=== PATIENT | male | born 1970 | race Caucasian/White ===

== ENCOUNTER 2025-04-01 12:25 | Emergency (ER) | payer BC, SELFPAY ==
--- NOTE | ~2025-04-01 | CT_ITS ---
EXAM/PROCEDURE: CT orbit BI wo con HISTORY: left eye injury COMPARISON: None available. TECHNIQUE: Noncontrast orbital CT FINDINGS: Mild periorbital swelling about the left eye present. Punctate hyperdense foci in the midline lower frontal region are present in the dermis area as can be seen on images 23 through 25 series 3. No radiopaque foreign body seen in or about the left orbit. Both globes appear symmetric and intact. Post septal soft tissues appear symmetric and within normal limits. Visualized intracranial and calvarial structures appear intact. Mild ethmoid air cell disease noted. IMPRESSION: No evidence of intraocular or postseptal injury involving the left orbit. Possible punctate foreign bodies in the lower midline frontal scalp region, and mild swelling as discussed above. Correlate with clinical exam. Reviewed, dictated and finalized at location A. ST MANAGEMENT PROFESSOR IMPRESSION: No evidence of intraocular or postseptal injury involving the left orbit. Possi ble punctate foreign bodies in the lower midline frontal scalp region, and mild swelling as discussed above. Correlate with clinical exam.
[2025-04-01 12:51] VITALS: BP 204/88; PULSE 109; RESP 18; TEMP 36.4; O2SAT 97
--- NOTE | 2025-04-01 14:20 | ED_ITS ---
HPI - Eye Problem General Chief complaint: Eye Problems <Selma Hernandes PA-C - Last Filed: 04/01/25 18:04> Stated complaint: nail to left eye <Selma Hernandes PA-C - Last Filed: 04/01/25 18:04> Time Seen by Provider: 04/01/25 14:20 <Selma Hernandes PA-C - Last Filed: 04/01/25 18:04> Focused HPI: This is a 54 year old male that presents to the ER for injury to the left eye. Reports the head of a nail hit him on the left eyelid last night while trying to remove a nail from the floor with a hammer and [place]. He does not wear contacts or glasses. Reports blurry vision as well as double vision in the left eye. GENERAL: Well-appearing, well-nourished, and in no acute distress. HEAD: Normocephalic, atraumatic. EYES: Left eye conjunctival injection CHEST: No respiratory distress. HEART: Regular rate NEURO: ?Alert and oriented x3. Patient screened in triage and initial orders placed.? ?Additional care and disposition to be based upon?diagnostic testing and treatment. <Selma Hernandes PA-C - Last Filed: 04/01/25 18:04> History of Present Illness HPI Narrative: Agree with the above with the following additions/corrections: Patient presents after using a crowbar to remove nails from a tractor trailer. The head of the nail struck him in his left eye although he believes that it might have only struck his eyelid, unclear. He does not wear glasses or contacts at baseline. He does not follow with her see an advertising editor/financial quantitative analyst although does note that at baseline he uses Visine quite regularly due to morning discharge and dry eyes at the end of the day. Has never had this looked into. Notes that it is essentially year round; attributed it to looking at screens, etc; not particularly seasonal. He denies any flashes or floaters. He visited [facility] urgent care [facility] this morning and was advised to present to ED given blurred vision. He reports that while doing the visual acuity test he seemed to have some diplopia in his left eye with his right eye was covered but this only occurred when he was attempting to read the letters and otherwise has not occurred with other objects is not currently occurring with objects in the room. He notes that his eye feels dry but not particularly [place] or with a foreign body sensation. Had used Visine this morning. No previous diagnosis of hypertension although he states that it has been years since he saw his previous primary care physician Dr. Burnham. He says it has been awhile since he had his tetanus updated, unknown when. <Jessica Graham MD - Last Filed: 04/01/25 21:09> Related Data Allergies/adverse reactions: Allergies Allergy/AdvReac Type Severity Reaction Status Date / Time No Known Allergies Allergy Unverified 01/29/11 11:35 <Selma Hernandes PA-C - Last Filed: 04/01/25 18:04> Review of Systems Review of Systems: All systems reviewed & are unremarkable except as noted in HPI and below <Selma Hernandes PA-C - Last Filed: 04/01/25 18:04> PMFSH Social History Social History: Social History Occupation/Education: occupation <Selma Hernandes PA-C - Last Filed: 04/01/25 18:04> Exam Narrative: GENERAL: Well-appearing, well-nourished, and in no acute distress. HEAD: Normocephalic, atraumatic. EYES: non icteric Visual acuity (as per RN) Pupils equal. Normal Ubaldo/fluroscein exam Eyelid (lower and upper) on left everted without evidence of foreign body Extraocular motility and alignment - normal, no entrapment or nystagmus External examination & Slit-lamp examination - 2mm abrasion at the 9 o'clock position of left eye medial /nasal aspect conjunctiva not extending to iris. Pain relief with tetracaine ENT: No epistaxis. Gross auditory acuity intact. NECK: Supple. No meningismus. CHEST: Speaking in full sentences. No respiratory distress. HEART: Tachycardic rate and rhythm. ABDOMEN: Soft, nondistended. EXTREMITIES: Normal range of motion. No lower extremity edema. SKIN: Warm, dry, no rash. NEURO: No focal deficits. Alert and oriented. Answering questions. Following c ommands. Normal speech without aphasia or dysarthria. PSYCH: Normal mood and affect. <Jessica Graham MD - Last Filed: 04/01/25 21:09> Course Vital Signs Vital signs: Vital Signs Temperature 97.5 F L 04/01/25 12:51 Pulse Rate 109 H 04/01/25 12:51 Respiratory Rate 18 04/01/25 12:51 Blood Pressure 204/88 H 04/01/25 12:51 Pulse Oximetry 97 04/01/25 12:51 Oxygen Delivery Room Air 04/01/25 12:51 Temperature 97.8 F 04/01/25 17:30 Pulse Rate 91 04/01/25 17:30 Respiratory Rate 18 04/01/25 17:30 Blood Pressure 158/121 H 04/01/25 17:30 Pulse Oximetry 97 04/01/25 17:30 Oxygen Delivery Room Air 04/01/25 12:51 <Selma Hernandes PA-C - Last Filed: 04/01/25 18:04> Vital Signs Temperature 97.5 F L 04/01/25 12:51 Pulse Rate 109 H 04/01/25 12:51 Respiratory Rate 18 04/01/25 12:51 Blood Pressure 204/88 H 04/01/25 12:51 Pulse Oximetry 97 04/01/25 12:51 Oxygen Delivery Room Air 04/01/25 12:51 Temperature 97.8 F 04/01/25 17:30 Pulse Rate 91 04/01/25 17:30 Respiratory Rate 18 04/01/25 17:30 Blood Pressure 158/121 H 04/01/25 17:30 Pulse Oximetry 97 04/01/25 17:30 Oxygen Delivery Room Air 04/01/25 12:51 <Jessica Graham MD - Last Filed: 04/01/25 21:09> MDM - Eye Problem MDM Narrative Medical decision making narrative: Patient presents after that had a nail accidentally struck him in his left eye. He believes it might have hit his eyelid although is unsure. He is having some blurred vision. History of waking up with sticky drainage/discharge and experiencing dry eyes for which he uses Visine very regularly at baseline though this has never been worked up he does not have an advertising editor/financial quantitative analyst. Does not wear glasses or contact lenses at baseline. In the emergency department he is afebrile with vital signs notable for tachycardia as well as significant hypertension. He notes that he does not formally have a diagnosis of of this although has not seen a primary care physician in a while. Visual acuity 20/70 Left and 20/25 right. Physical exam shows a 2 mm corneal abrasion at the medial aspect of left eye. This diagnosis seems even more likely given he experiences relief with tetracaine drops. Advised on the natural history anticipated course of this injury and on management and the need to follow-up with the next 24-48 hours. Advised that he also discuss with Optometry/Ophthalmology at that time his chronic/longstanding issue with drainage and dry eyes. Discussed that vice seen formulations can contain an irritant and to discuss whether they think this might be contributing to his symptoms and or have other ideas. Repeat blood pressure remains elevated although with improvement in systolic and worsening in diastolic, narrow pulse pressure. Advised that he reestablish with his primary care physician to continue to monitor, currently attributing this to pain. Discharged with prescriptions for NSAID, lubricating eye drops, erythromycin ointment. First dose with erythromycin ointment ordered in the ED as well as a 1 time dose of narcotic medication. Stable for discharge. Provided referral contact info for 2 local eye doctor locations. Tetanus immunization updated given his status unknown. Advised that plain nonmedicated eye drops could be placed in refrigerator for cooling effect. <Jessica Graham MD - Last Filed: 04/01/25 21:09> Differential Diagnosis Differential diagnosis: Likely corneal abrasion, conjunctivitis, acute iritis, hyphema, subconjunctival hemorrhage, corneal ulcer and ruptured globe <Jessica Graham MD - Last Filed: 04/01/25 21:09> Imaging Data Radiologist's impression: Impressions Orbit CT 04/01/25 14:58 IMPRESSION: No evidence of intraocular or postseptal injury involving the left orbit. Possible punctate foreign bodies in the lower midline frontal scalp region, and mild swelling as discussed above. Correlate with clinical exam. <Jessica Graham MD - Last Filed: 04/01/25 21:09> Discharge Plan Discharge Clinical Impression: Corneal abrasion Qualifiers: Encounter type: initial encounter Laterality: left Qualified Code(s): S05.02XA - Injury of conjunctiva and corneal abrasion without foreign body, left eye, initial encounter <Selma Hernandes PA-C - Last Filed: 04/01/25 18:04> Patient Disposition: Home <RUBY Green Last Filed: 04/01/25 18:04> Condition: Stable <RUBY Green Last Filed: 04/01/25 18:04> Instructions: Antibiotic Form, Corneal Abrasion (DC) <RUBY Green Last Filed: 04/01/25 18:04> Additional Instructions: Attempt to reestablish care with your previous PCP, Dr Barlow, especially given your blood pressure was elevated today (although considered due to pain today). Use the lubricating eyedrops as well as the antibiotic ointment. NSAIDs can help with the pain and inflammation. Follow up with optometry/opthalmology within 48 hours. Return to the emergency department any new or worsening symptoms. Your tetanus shot was given today to update your immunization status. <RUBY Green Last Filed: 04/01/25 18:04> Patient Language: Portuguese <RUBY Green Last Filed: 04/01/25 18:04> Prescriptions: New carboxymethylcellulose sodium [Lubricant Eye Drops] 0.5 % drops 1 drp LEFT EYE 4-6XD PRN (Reason: dry eye(s)) Qty: 15 0RF erythromycin 5 mg/gram (0.5 %) ointment 1 applic LEFT EYE QID Qty: 3.5 0RF Rx Instructions: 3-5 days ibuprofen 200 mg capsule 600 mg PO Q8H PRN (Reason: pain) Qty: 30 0RF <RUBY Green Last Filed: 04/01/25 18:04> Follow-up/Referrals: [facility] [Outside] [facility] [Outside] Cain,Yevgeniy Mcdowell MD [Primary Care Provider, Unknown] <RUBY Green Last Filed: 04/01/25 18:04> Stand Alone Forms: Work/School Release IP <RUBY Green Last Filed: 04/01/25 18:04> Time of Disposition: 17:03 <Selma Hernandes PA-C - Last Filed: 04/01/25 18:04> 17:03 <Jessica Graham MD - Last Filed: 04/01/25 21:09>
[2025-04-01] MEDS: FLUORESCEIN SOD 1 MG/STRIP EACH EYE (15:58)
[2025-04-01] MEDS: TETANUS,DIPHTHERIA,AC PERTUSSIS ADULT (0.5 ML) BOOSTRIX IM (17:08)
[2025-04-01] MEDS: HYDROcodone/acetaminophen (*CRX) 5-325 MG TABLET 1 TAB PO (17:08)
[2025-04-01] MEDS: ERYTHROMYCIN OPHTH OINTMENT 1 GM TUBE 1 APPLIC LEFT EYE (17:10)
[2025-04-01 17:18] VITALS: BP 158/121; PULSE 91; RESP 18; TEMP 36.6; O2SAT 97
[2025-04-01 17:30] VITALS: BP 158/121; PULSE 91; RESP 18; TEMP 36.6; O2SAT 97
== END 2025-04-01 17:35 | disposition home or self-care (01) ==
PROVIDERS: Emergency Provider Student in an Organized Health Care Education/Training Program; PCP Internal Medicine
DX: S05.02XA Injury of conjunctiva and corneal abrasion without foreign body, left eye, initial encounter (principal); Z23 Encounter for immunization; W20.8XXA Other cause of strike by thrown, projected or falling object, initial encounter
CPT/HCPCS: 70480; 90471; 90715; 99284; A9270